=== PATIENT | male | born 1985 | race Caucasian/White ===

== ENCOUNTER 2017-04-05 21:17 | Emergency (ER) | payer OTHER ==
[~2017-04-05 21:17] MED LIST: ACETAMINOPHEN325 MG PO; ALPRAZOLAM; ALPRAZOLAM PO; ATIVAN2 MG PO; BACITRACIN30 GM TOP; BACTRIM DS PO; BACTRIM DS TABL1 TA1 PO; CHOLESTEROL PILL; CLINDAMYCIN HC300 MG PO; COLACE PO; DARVOCET-N 1001 TAB PO; DICLOFENAC PO; FISH OIL 1,001000 M1 PO; FLEXERIL; FLEXERIL PO; FLEXERIL10 MG PO; HCTZ PO; HYDROCODONE-APA1 T55 PO; IBUPROFEN PO; IBUPROFEN600 MG PO; KEFLEX PO; KEFLEX500 MG PO; LORTAB 10/500 T1 TAB PO; LORTAB 5/500 TA1 TA1 PO; LORTAB 7.5-5001 TAB PO; MULTI-VITAMIN1 EAC1 PO; NO MEDICATIONS; NORFLEX100 M1 PO; PERCOCET 5-3251 TAB PO; PERCOCET 7.5-31 EACH PO; PERCOCET5/325 PO; PHENERGAN25 MG PO; SENNA8.6 M2 PO; SKELAXIN PO; TRAMADOL HCL50 M2 PO; TRAZODONE; TRAZODONE PO; ULTRAM PO; VICODIN 5/500 T1 TAB PO; VICODIN PO; VOLTAREN75 MG PO; XANAX1 MG PO; ZOLOFT; ZOLOFT PO; [UNRECOGNIZED DRUG - CODE] PO; [UNRECOGNIZED DRUG - OTHER] OT; [UNRECOGNIZED DRUG - REMARK]
[2017-04-05] MEDS ORDERED: NO MEDICATIONS (21:23)
== END 2017-04-05 22:27 | disposition home or self-care (01) ==
LOC: SED 21:17
DX: H93.13 Tinnitus, bilateral (principal); F17.210 Nicotine dependence, cigarettes, uncomplicated
CPT/HCPCS: 99282

== ENCOUNTER 2017-04-19 15:22 | Emergency (ER) | payer OTHER | END 2017-04-19 16:58 | disposition home or self-care (01) | LOC: SED 15:22 | DX: L02.212 Cutaneous abscess of back [any part, except buttock and flank] (principal); F17.210 Nicotine dependence, cigarettes, uncomplicated | CPT/HCPCS: 99282 ==